=== PATIENT | female | born 1965 | race Two or more races ===

== ENCOUNTER 2023-11-29 18:45 | Inpatient (IN) | payer BC ==
[~2023-11-29] VITALS: Ht 157.5 cm; Wt 72.6 kg
[2023-11-29] MEDS ORDERED: LIPITOR40 M1 PO (18:48)
[2023-11-29] MEDS ORDERED: NORVASC10 MG PO (18:48)
[2023-11-29] MEDS ORDERED: ZESTRIL5 MG PO (18:48)
[2023-11-29] MEDS ORDERED: PANTOPRAZOLE SO20 MG PO (18:48)
[2023-11-29] MEDS ORDERED: B12 ACTIVE1000 MCG PO (18:48)
--- NOTE | 2023-11-29 18:49 | NUR ---
PACIENTE TRAIDO EN AMBULANCIA POR UN SYNCOPE A LAS 1PM Y OTRO A LAS 6PM. LA MISMA ANTES QUE TUVIERA EL SYNCOPE COMENZO A SENTIRSE MAREADA Y SUDOROSA. SE REALIZA EKG
[2023-11-29] MEDS ORDERED: 0.9 % SODIUM CHLORIDE 500 ML IV SCH (19:15)
--- NOTE | 2023-11-29 19:20 | NUR ---
ELAINE BYNUM ORIENTA A PTE SOBRE TRATAMIENTO E INSTRUCCIONES A SEGUIR, EL REFIERE ENTENDER. SE COLECTA MUESTRAS, SE CANALIZA Y SE ADMINISTRA MEDICAMENTO DOMINGA ORDEN MEDICA
[2023-11-29 19:38] LABS: HEMATOCRIT 36.1 % (36.0-45.00); HEMOGLOBIN 12.4 g/dL (12.0-15.00); MEAN CELL VOLUME 100.1 fL (80.00-100.00); MEAN CORPUSCULAR HEMOGLOBIN 34.4 pg (27.00-32.0); MEAN CORPUSCULAR HGB CONC 34.4 g/dl (32.0-36.0); PLATELET COUNT 315 K/uL (150-450); RED BLOOD COUNT 3.61 M/uL (4.00-6.00); RED CELL DISTRIBUTION WIDTH 12.8 % (11.5-14.5)
[2023-11-29 19:57] LABS: PH,URINE 5.5 (5.0-8.0); URINE APPEARANCE Clear; URINE BILIRRUBIN Negative (NEGATIVE); URINE BLOOD Small; URINE COLOR Yellow; URINE KETONE 15 (NEGATIVE); URINE LEUKOCYTE Negative; URINE NITRATE Negative; URINE PROTEIN Negative (NEGATIVE); URINE UROBILINOGEN 0.2 E.U./dl
[2023-11-29 20:01] LABS: URINE BACTERIA 65.5 uL (0.0-1933); URINE EPITHELIAL CELLS 11.4 uL (0.0-38.8); URINE RBC 7.1 uL (0.0-20.8); URINE WBC 15.4 uL (0.0-23.2)
[2023-11-29 20:06] LABS: CALCIUM 9.4 mg/dL (8.5-10.1); CREATININE SERUM 0.79 mg/dL (0.55-1.02); GFR 74.49; POTASSIUM 3.94 mEq/L (3.5-5.1)
[2023-11-29 20:11] LABS: URINE CAST 1.06 uL (0.0-1.40); URINE GLUCOSE >=1000 MG/DL (NEGATIVE)
[2023-11-29] MEDS ORDERED: CEFTRIAXONE SODIUM 2,000 MG in 0.9 % SODIUM CHLORIDE 100 ML IV SCH (21:54)
[2023-11-29] MEDS ORDERED: ACETAMINOPHEN 500 MG GEL..CAP PO PRN (22:00)
[2023-11-29] MEDS ORDERED: 0.9 % SODIUM CHLORIDE 1,000 ML IV SCH (22:15)
[2023-11-29] MEDS ORDERED: CEFTRIAXONE SODIUM 2,000 MG VIAL ONE (23:46)
[2023-11-30 01:21] LABS: D DIMER 1.27 MG/L; PARTIAL THROMBOPLASTIN TIME 24.5 SECONDS (22.0-34.0)
[2023-11-30 01:54] LABS: PROTHROMBIN TIME 10.5 SECONDS (9.0-11.5)
[2023-11-30] MEDS ORDERED: FAMOTIDINE/PF 20 MG in 0.9 % SODIUM CHLORIDE 8 ML IV PUSH SCH (09:00)
[2023-11-30] MEDS ORDERED: LISINOPRIL 5 MG TABLET PO SCH (09:00)
[2023-11-30] MEDS ORDERED: ASPIRIN 81 MG TAB.CHEW PO SCH (09:00)
[2023-11-30] MEDS ORDERED: ATORVASTATIN CALCIUM 40 MG TABLET PO SCH (09:00)
[2023-11-30] MEDS ORDERED: AMLODIPINE BESYLATE 5 MG TABLET PO SCH (12:00)
== END 2023-12-01 17:23 | disposition left against medical advice (07) | DRG 312 ==
LOC: ER 18:45 → SEC-K 22:03 → MEDI 22:03 → SEC-K 11-30 01:04 → MEDI 11-30 03:28
PROVIDERS: General Practice; ADMIT Internal Medicine; ATTEND Internal Medicine
PROC: B345ZZZ Ultrasonography of Bilateral Common Carotid Arteries (ICD-10-PCS; 2023-11-29)
PROC: B24BYZZ Ultrasonography of Heart with Aorta using Other Contrast (ICD-10-PCS; 2023-11-29)
PROC: B020ZZZ Computerized Tomography (CT Scan) of Brain (ICD-10-PCS; 2023-11-29)
PROC: BW38Y0Z Magnetic Resonance Imaging (MRI) of Head using Other Contrast, Unenhanced and Enhanced (ICD-10-PCS; principal; 2023-11-30)
DX: R55 Syncope and collapse (principal); I10 Essential (primary) hypertension; K21.9 Gastro-esophageal reflux disease without esophagitis
CPT/HCPCS: 70545